=== PATIENT | female | born 1945 | race Caucasian/White ===

== ENCOUNTER 2019-03-22 23:37 | Inpatient (IN) ==
[2019-03-22] MEDS ORDERED: MORPHINE IV ONE (23:57)
[2019-03-22] MEDS ORDERED: ZOFRAN IV ONE (23:57)
[2019-03-22] MEDS ORDERED: NS 1,000 ML IV ONE (23:59)
--- NOTE | 2019-03-23 00:03 | PROVIDER DOCUMENTATION ---
HPI-Abdominal Pain/GI Problem - General Chief Complaint: Abdominal Pain Stated Complaint: ABD PAIN Time Seen by Provider: 03/22/19 23:44 Source: patient Allergies/Adverse Reactions: Patient Allergies Allergy/AdvReac Type Severity Reaction Status Date / Time No Known Allergies Allergy Verified 03/22/19 23:51 Home Medications: Home Medication List Medication Instructions Recorded Confirmed Last Taken Type Alprazolam 0.25 mg PO DAILY 03/23/19 03/23/19 Unknown History Amlodipine Besylate/Benazepril 1 ea PO DAILY 03/23/19 03/23/19 Unknown History [Amlodipine-Benazepril 5-20 mg] Nabumetone 2 tb.unit PO DAILY 03/23/19 03/23/19 Unknown History Ondansetron [Zofran] 4 mg PO Q6H PRN PRN 03/23/19 03/23/19 Unknown History SIMVAstatin [Zocor] 40 mg PO QHS 03/23/19 03/23/19 Unknown History - History of Present Illness-ABD Nature of Presenting Problems: 73 YO F pmh for HTN presents with acute onset abdominal pain and vomiting that began at 1800 today. Pt states she vomited all of her dinner. had about 3-4 episodes of diarrhea, associated with blood. She had dizziness, so called EMS. En route, pt became hypotensive with BPs down to 80s systolic, she was given 500mL fluids. Pt AAOx3 with abdominal pain and nausea on exam. Abdominal Pain Onset Location: reports: LLQ Pain Radiation: reports: no radiation Quality of Pain: reports: aching, sharp Severity in ED: reports: moderate Onset/Duration: reports: 4-6 hours ago Timing: reports: still present Activities at Onset: reports: other (eating dinner) Modifying Factors: improves with: nothing Associated Symptoms: reports: diarrhea, dizziness, malaise, nausea, vomiting. denies: constipation, fatigue, fever/chills, headaches Last BM: this evening Dark Stools Present?: reports: bright red blood Rectal Pain: reports: none Bruising or Bleeding Gums?: No Review of Systems - Adult - REVIEW OF SYSTEMS - ADULT Constitutional: denies: chills, fever Eyes: reports: no symptoms reported Ears, Nose, Mouth & Throat: reports: no symptoms reported Cardiovascular: denies: chest pain, edema Respiratory: denies: cough, shortness of breath, wheezing Gastrointestinal: reports: see HPI, abdominal pain, diarrhea, nausea, rectal bl eeding, vomiting Genitourinary: reports: no symptoms reported Musculoskeletal: reports: no symptoms reported Integumentary: reports: no symptoms reported Neurological: reports: dizziness/vertigo Past History - Adult - PAST MEDICAL HISTORY-ADULT Review of Records: reports: Nursing Assessment Review, Medications Reviewed Major Childhood Illnesses: reports: denies history Cardiovascular: reports: HTN, hyperlipidemia Respiratory: reports: denies history Gastrointestinal: reports: denies history Genitourinary: reports: denies history Musculoskeletal: reports: chronic pain (chronic arthritis) - PRIOR SURGERIES/PROCEDURES Surgical/Procedure History: reports: hysterectomy, other (cysts removed from ovaries). denies: recent surgery - FAMILY HISTORY Family History: reviewed, not pertinent - SOCIAL HISTORY Smoking: cigarettes Substance Use: denies Living Situation: family Physical Exam-General - PHYSICAL EXAM-ADULT Initial Vital Signs Reviewed: Yes - CONSTITUTIONAL General Appearance: alert, no apparent distress, slow to respond - EYES Eyes: PERRL/EOMI - HEAD, EARS, NOSE, MOUTH & THROAT HENMT: normocephalic/atraumatic, moist mucous membranes - NECK Neck: supple - RESPIRATORY Respiratory: lungs clear, normal breath sounds - CARDIOVASCULAR Cardiovascular: regular rate, rhythm, no edema - GASTROINTESTINAL (ABDOMEN) Abdominal Exam: tenderness (LLQ) - MUSCULOSKELETAL Back Exam: no CVA tenderness Extremity: normal range of motion - SKIN Integumentary: normal color, normal turgor, warm/dry - NEUROLOGIC Neurologic: grossly normal - PSYCHIATRIC Psych/Mental Status: normal mood/affect, oriented x 3 Progress - PLAN OF CARE/RESULTS Progress/Plan/Lab Results: Vital Signs - 8 hr 03/22/19 23:43 Temperature 97.4 F L Pulse Rate 75 Respiratory Rate 16 Blood Pressure 98/57 O2 Sat by Pulse Oximetry 95 Orders Category Date Time Status CT ABDOMEN/PELVIS W/O CONTRAST [CT] Stat Exams 03/22/19 23:56 Ordered CBC WITH ELECTRONIC DIFF [HEME] Stat Lab 03/22/19 23:55 Uncollected COMPREHENSIVE METABOLIC PANEL [CHEM] Stat Lab 03/22/19 23:56 Uncollected PROTIME WITH INR [COAG] Stat Lab 03/22/19 23:56 Ordered PTT [COAG] Stat Lab 03/22/19 23:56 Ordered TSH Stat Lab 03/22/19 23:56 Uncollected TYPE & SCREEN [BBK] Stat Lab 03/22/19 23:56 Uncollected URINALYSIS W/POSS RFLX CULT [URINALYSIS] Stat Lab 03/22/19 23:56 Uncollected Morphine Med 03/22/19 23:57 Once 4 mg IV NOW ONE Ondansetron [Zofran] Med 03/22/19 23:57 Once 8 mg IV NOW ONE Result Diagrams: 03/22/19 23:57 03/22/19 23:57 - REASSESSMENT Reassessment #1 Time Reassessed: 00:58 Status: unchanged (pt with no improvement in pain after morphine. will try dilaudid. ct scan and labs pending.) Reassessment #2 Time Reassessed: 01:17 Status: unchanged (pt with vomiting. CT showing diverticulitis. BPs still low normal.) - CT/MRI 1 CT Study: Abdomen, Pelvis Impression: See EMR Report (mild diverticulitis with trace inflammatory changes adjacent to diverticuli within the left lower quadrant. dilation of the gall bladder.) - CONSULTS/PCP/HOSPITALIST Notification #1 *Consult/PCP/Hospitalist*: Dr. Ocampo Time Discussed: 02:03 Consult Disposition: Will see in ED Departure - Departure Date of Disposition Decision: 03/23/19 Time of Disposition Decision: 02:03 DIAGNOSIS: Diverticulitis, Elevated creatine kinase Disposition: ADMITTED INPATIENT 09 Certified Medical Emergency: Emergent Condition: Stable - Critical Care Note This patient required my direct & personal management of CC.: No Attestation - Physician/ BARRETT Attestation The physician spent face to face time with patient:: Yes Advanced Practice Provider documentation review:: Supervising physician onsite and consulted in the evaluation and care of this patient. The physician did have a face to face encounter with the patient.
[2019-03-23] MEDS ORDERED: NS 1,000 ML IV ONE (00:59)
[2019-03-23] MEDS ORDERED: DILAUDID IV ONE (00:59)
[2019-03-23 01:01] LABS: BASO# 0.02 X1000 (0.0-0.2); BASO% 0.2 % (0.0-0.8); EOS# 0.04 X1000 (0.0-0.7); EOS% 0.3 % (0.0-10.0); IMM GRAN# 0.03 X1000 (0.0-0.04); IMM GRAN% 0.2 % (0.0-0.5); LYMPH# 0.52 X1000 (1.2-3.4); LYMPH% 4.3 % (20.5-51.1); MCH 30.1 PG (27-31); MCHC 32.7 g/dL (33-37); MCV 92.3 FL (81-99); MONO# 1.25 X1000 (0.11-0.59); MONO% 10.2 % (1.7-9.3); MPV 11.5 FL (7.4-10.4); NEUT# 10.35 X1000 (1.4-6.5); NEUT% 84.8 % (42.2-75.2); PLT 310 X1000 (130-400); RBC 5.31 XMIL (4.2-5.4); RDW 13.3 % (11.5-14.5); WBC 12.21 X1000 (4.8-10.8)
[2019-03-23 01:06] LABS: INR 0.97; PTT 29.3 Seconds (22.3-41.8)
[2019-03-23] MEDS ORDERED: FLAGYL 500 MG/NS 500 MG/100 ML IVPB IV ONE (01:14)
[2019-03-23] MEDS ORDERED: PHENERGAN IV ONE (01:16)
[2019-03-23] MEDS ORDERED: SODIUM CHLORIDE 0.9% INJ ONE (01:16)
[2019-03-23 01:25] LABS: ALB/GLOB RATIO 2.3; ALBUMIN 4.4 g/dL (3.5-5.0); CALCIUM 9.6 mg/dL (8.8-10.2); CREATININE 1.7 mg/dL (0.5-0.9); POTASSIUM 4.4 mmol/L (3.5-5.1); TOTAL BILIRUBIN 0.53 mg/dL (0.20-1.00); TOTAL PROTEIN 6.3 g/dL (6.3-8.3)
[2019-03-23] MEDS ORDERED: SODIUM CHLORIDE 0.9% INJ PRN (02:29)
[2019-03-23] MEDS ORDERED: PHENERGAN IV PRN (02:29)
[2019-03-23] MEDS ORDERED: DILAUDID IV PRN (02:34)
[2019-03-23] MEDS: NS 1,000 ML IV SCH ×2 (02:52→17:58)
[2019-03-23] MEDS ORDERED: CIPRO 400 MG/D5W 400 MG/200 ML IVPB IV ONE (03:00)
[2019-03-23] MEDS ORDERED: SODIUM CHLORIDE 0.9% INJ SCH (03:00)
--- NOTE | 2019-03-23 04:07 | HISTORY AND PHYSICAL ---
PRIMARY CARE PHYSICIAN: Jeremy Garza MD. CHIEF COMPLAINT: Abdominal pain. HISTORY OF PRESENT ILLNESS: Ms. Palomino is a 73-year-old female who presented to the ER today with complaints of abdominal pain, diarrhea and vomiting. The patient states that after dinner tonight she started having severe abdominal pain. She started having severe diarrhea and vomiting. She started having so much diarrhea that it became bloody. She stated that she has had a history of diverticulitis in the past, and this is what she had in the past when she had diverticulitis. The patient states that she also has had a history of gastric ulcers, and she was placed on medication for that in the past. She believes that her gastric doctor is Dr. Johnson. CT scan was done in the ER, it does show the patient to have mild diverticulitis with trace inflammatory changes adjacent to the diverticula, with left lower quadrant dilation and dilation of the gallbladder. The patient is also noted to have an elevated white blood cell count of 12.21, and elevated creatinine of 1.7. The patient is lying in the ER stretcher. She is complaining of some mild abdominal discomfort at this time; however, she has had a couple doses of pain medication and some nausea medicine while in the ER. The patient stated that she also had some dizziness with this pain. She has not complained of any of the symptoms at this time. PAST MEDICAL HISTORY: Includes diverticulitis, hypertension, hyperlipidemia, renal cyst, granulomas, arthritis which she has atropine noted from a hip replacement, and is on home NSAIDs. PAST SURGICAL HISTORY: Right hip replacement, hysterectomy. FAMILY HISTORY: Father from Alzheimer's. She has a couple of brothers that have severe arthritis. She had a brother from leukemia. SOCIAL HISTORY: She lives in [place] with her of 27 years. She is retired. She states she smokes half a pack of cigarettes a day and has for greater than 60 years. She occasionally drinks alcohol. She denies any illicit drug abuse. ALLERGIES: No known drug allergies. MEDICATIONS: 1. Alprazolam 0.25 mg p.o. daily. 2. Amlodipine/benazepril 5/20 mg 1 p.o. daily. 3. Nabumetone 750 mg p.o. daily. 4. Zofran 4 mg p.o. q.6 hours p.r.n. 5. Simvastatin 40 mg p.o. q.h.s. LABORATORY AND DIAGNOSTICS: White blood cell count is 12.21, red blood cell count is 5.31, hemoglobin is 16.0, hematocrit is 49.0, platelet count is 310,000. PT 13.0, INR 0.97, PTT is 29.3. Sodium 142, potassium is 4.4, chloride 103, carbon dioxide 19, anion gap 20, BUN is 13, creatinine is 1.7, estimated GFR is 29, glucose 134, calcium 9.6, total bilirubin is 0.53, AST is 19, ALT is 16, alkaline phosphatase is 85. TSH is 10.66. IMAGING: CT of the abdomen and pelvis shows mild diverticulitis with trace inflammatory changes adjacent to the diverticula with left lower quadrant and dilation of the gallbladder. REVIEW OF SYSTEMS: A 12 point review of systems has been obtained and all are negative except what is stated above in the HPI. PHYSICAL EXAMINATION: VITAL SIGNS: Temperature 97.4 degrees, pulse rate 76, respiratory rate 15, blood pressure 104/61, O2 saturation is 96% on room air. Height is 5 feet 10 inches, weight is 172 pounds. GENERAL: This is a 73-year-old female. She is lying in ER stretcher. She is in no acute distress. She is well nourished and well developed. HEENT: Atraumatic, normocephalic. Pupils are equal, round, reactive to light. Sclerae are anicteric. Mucous membranes are moist. NECK: Supple. No lymphadenopathy. Trachea is midline. No JVD. No thyromegaly. No bruits. CARDIOVASCULAR: Regular rate and rhythm. No murmurs, gallops or rubs appreciated. RESPIRATORY: Lung sounds are clear with equal chest excursion. Respirations are nonlabored. No accessory muscle usage. GASTROINTESTINAL: Abdomen is tender, it is nondistended. Bowel sounds are present x4. NEUROLOGIC: Cranial nerves II-XII are intact. The patient is awake, alert and oriented. MUSCULOSKELETAL: Full distal strength noted. No abnormalities. No deformities. EXTREMITIES: No clubbing, no cyanosis, no edema. DP and PT pulses are present and palpable. SKIN: Warm, dry and intact. No rashes. No bruises. No diaphoresis. ASSESSMENT AND PLAN: 1. Diverticulitis. We are going to admit this patient to the medical floor. We are going to place her on a air sampling and monitoring. We are going to start her on IV fluid hydration of normal saline at 100 mL an hour. We are going to start her on Flagyl and Cipro. She was given a dose in the ER already, I am just going to continue these medications on the floor. She was given Dilaudid in the ER for pain control, I am going to continue this dose. We are going to give her 0.5 q.3 hours p.r.n. as needed for pain. I am also going to give her Zofran and Phenergan for her nausea. I am going to keep her NPO at this time as she has had several bouts of nausea, vomiting and diarrhea. Once this gets better we will start her on a clear liquid diet. Her H H is stable at this time. If she has any more bleeding or any more problems we will consult GI. Right now everything seems to be stable at this time. 2. Chronic kidney disease. The patient does take home NSAIDs for her arthritis. I am not going to restart her home medications at this time. She is NPO for her nausea and vomiting. I do not have any numbers to see what her creatinine or her GFR is. I am going to give her some IV fluid hydration. She says she does not have any trouble voiding. Her creatinine is only 1.7. Her GFR is 29. I am going to recheck her labs in the morning. Hopefully this number will improve with some IV fluid hydration. 3. Possible hypothyroidism. We did check a TSH on this patient, it is very elevated. The patient does not take anything for this at home. We may want to recheck this number prior to discharge and after some fluid hydration. This number is elevated at 10.66. 4. Hypertension. We are holding all her p.o. medications at this time. Her blood pressure is within normal range at this time. We will restart her home medications once she is able to tolerate p.o. 5. Hyperlipidemia. We will restart her home medications once she is able to tolerate p.o. 6. Deep venous thrombosis prophylaxis. I have placed SCD's on this patient. 7. Gastrointestinal prophylaxis. I will start her on IV Protonix. The plan is to admit this patient to the medical floor. I have started her on IV fluid hydration. I have started her on IV antibiotics for her diverticulitis. I am going her NPO at this time given her antiemetics for her nausea and vomiting. I have given her pain medication for her abdominal pain. All other further treatment pending hospital course and laboratory data. Dictated by JOHN Alexis for Sasha Ocampo MD cc: MD Jeremy Jalloh MD My exam was performed at bedside with [facility]. Plan of care discussed with [facility] and patient and questions answered to her satisfaction. DENNIS
[2019-03-23] MEDS: PROTONIX IV SCH (04:10)
[2019-03-23] MEDS: ZOFRAN IV PRN ×2 (04:19→10:18)
--- NOTE | 2019-03-23 08:28 | Diag Imaging Result Doc PS360 ---
EXAM: CT ABDOMEN/PELVIS W/O CONTRAST INDICATION: LLQ abdominal pain, acute onset TECHNIQUE: This exam was performed using automated exposure control, adjustment of mA or kV according to patient size, and/or use of iterative reconstruction technique. COMPARISON: None. FINDINGS: There is mild subsegmental atelectasis at the lung bases. The gallbladder is distended. No pericholecystic inflammatory changes are identified and there is no evidence of significant biliary dilatation. There are a couple of small hepatic cysts. The liver is unremarkable, otherwise. The spleen and pancreas are unremarkable. There is minimal low dense thickening of the left adrenal gland that statistically most likely represents an underlying adenoma. The adrenal glands are unremarkable, otherwise. There a few cystic appearing foci involving both kidneys, possibly containing proteinaceous debris. There is a tiny subcentimeter nodule at the posterior aspect of the left kidney that is mildly hyperdense. Although technically nonspecific on an unenhanced study, this probably represents a cyst containing blood products. There are no renal or ureteral stones and there is no hydronephrosis. The urinary bladder is nondistended and is partially obscured by the hardening artifact related to right hip arthroplasty. There has been a prior hysterectomy. There is fairly extensive sigmoid colonic diverticulosis. There is trace increased opacity around the sigmoid colon. I suppose this could represent extremely mild diverticulitis. However, it is questionable. Note that it could be less apparent on an unenhanced study such as this. No definite focal bowel wall thickening or bowel obstruction is identified. The remainder of the GI tract is essentially unremarkable. No free abdominal gas or free fluid is identified. There is extensive aortoiliac atherosclerotic calcification. There are degenerative changes but there is no evidence of acute osseous abnormality. IMPRESSION: 1.Diverticulosis with trace increased opacity around the sigmoid colon. Although questionable, very mild diverticulitis is possible. 2.Distended gallbladder but no definite biliary dilatation or pericholecystic inflammatory change. 3.Other incidental/nonacute findings detailed above. Electronically signed by Greg Munoz 03/23/2019 8:26 AM
--- NOTE | 2019-03-23 08:46 | Diag Imaging Result Doc PS360 ---
EXAM: US GB < RUQ (LIMITED) 03/23/2019 HISTORY: abd pain, n/v/ dilated gall bladder TECHNIQUE: Right upper quadrant ultrasound COMMENT: The pancreatic head and portions of the body which are visible are normal in appearance. The visualized portions of the aorta and inferior vena cava are unremarkable. The liver is grossly normal in appearance. There is antegrade flow in the portal vein. The gallbladder is somewhat distended measuring up to 9.1 cm in length. There are no stones and there is no evidence of para cholecystic fluid or wall thickening. The common bile duct measures 6 mm in diameter. There is a 2 cm cyst in the upper pole of the right kidney. There is no evidence of hydronephrosis. There is no sonographic Quiroga sign. IMPRESSION: Distended gallbladder of uncertain etiology. It is possible this is due to fasting, secondary to enterocolitis/gastroenteritis as suggested by the recent CT of 03/23/2019. Electronically signed by Andrei Younger 03/23/2019 8:43 AM
--- NOTE | 2019-03-23 09:10 | PROGRESS NOTE ---
DATE: 03/23/2019 SUBJECTIVE: The patient complains of having mild abdominal pain and nausea. She denies having any other complaints. OBJECTIVE: Vital Signs: Temperature 98.9 degrees, pulse 73 per minute, respiratory rate 20 per minute, blood pressure 106/31, pulse oximetry 97% on room air. General: Patient is alert and oriented x3. She does not appear to be in any acute distress. Cardiovascular System: First and second heart sounds are audible without any murmurs or gallops. Respiratory System: Bilateral lung air entry is good without any rales or rhonchi. Abdomen: Soft and nondistended. It is slightly tender on deep palpation on the left side of the abdomen. Normal bowel sounds are present. DIAGNOSTIC DATA: CBC shows WBC count of 12.21 with 84.8% neutrophils. Rest of the CBC is nondiagnostic. Comprehensive metabolic panel showed creatinine of 1.7. Rest of the comprehensive metabolic panel is nondiagnostic. TSH levels were found to be 10.66. CT scan of the abdomen and pelvis showed diverticulosis with trace increased opacity around the sigmoid colon. Questionable very mild diverticulitis is possible. Gallbladder was found to be distended, but no definite biliary dilatation or cholecystic inflammatory change was noted. Gallbladder ultrasound has been performed this morning, the results of which are pending at the time of this dictation. IMPRESSION: 1. A 73-year-old lady who has abdominal pain with possible diverticulitis and has gallbladder distention. 2. Stage 3 chronic kidney disease. 3. Hypertension. 4. Osteoarthritis. PLAN: The patient will continue to receive Cipro along with Flagyl intravenously and IV fluids. She will also continue with supportive care and we will discontinue any NSAIDs since her chronic kidney disease does appear to be secondary to NSAIDs. Her TSH is elevated and therefore I am going to add TSH along with free T3 and free T4 levels tomorrow. Further recommendations will be as per hospital course and outcome of further investigations. cc: Timur Mckenzie MD
[2019-03-23] MEDS: FLAGYL 500 MG/NS 500 MG/100 ML IVPB IV SCH ×2 (10:17→17:58)
[2019-03-23] MEDS: CIPRO 400 MG/D5W 400 MG/200 ML IVPB IV SCH (15:10)
[2019-03-24] MEDS: FLAGYL 500 MG/NS 500 MG/100 ML IVPB IV SCH (01:19)
[2019-03-24] MEDS: CIPRO 400 MG/D5W 400 MG/200 ML IVPB IV SCH ×2 (02:42→14:01)
[2019-03-24] MEDS: PROTONIX IV SCH (02:42)
[2019-03-24 07:50] LABS: BASO# 0.02 X1000 (0.0-0.2); BASO% 0.2 % (0.0-0.8); EOS# 0.16 X1000 (0.0-0.7); EOS% 1.6 % (0.0-10.0); HEMATOCRIT 37.4 % (37.0-47.0); HEMOGLOBIN 11.7 g/dL (12.0-16.0); IMM GRAN# 0.02 X1000 (0.0-0.04); IMM GRAN% 0.2 % (0.0-0.5); LYMPH# 1.39 X1000 (1.2-3.4); LYMPH% 14.2 % (20.5-51.1); MCH 29.7 PG (27-31); MCHC 31.3 g/dL (33-37); MCV 94.9 FL (81-99); MONO# 1.11 X1000 (0.11-0.59); MONO% 11.3 % (1.7-9.3); MPV 11.3 FL (7.4-10.4); NEUT# 7.08 X1000 (1.4-6.5); NEUT% 72.5 % (42.2-75.2); PLT 233 X1000 (130-400); RBC 3.94 XMIL (4.2-5.4); RDW 13.9 % (11.5-14.5); WBC 9.78 X1000 (4.8-10.8)
[2019-03-24 08:11] LABS: CALCIUM 8.2 mg/dL (8.8-10.2); CREATININE 2.9 mg/dL (0.5-0.9); MAGNESIUM 1.6 mg/dL (1.5-2.7); POTASSIUM 4.1 mmol/L (3.5-5.1)
[2019-03-24 08:24] LABS: FREE T4 1.2 ng/dL (0.93-1.70); TSH 1.64 uIUmL (0.27-4.20)
[2019-03-24] MEDS ORDERED: NORCO-7.5 PO PRN (08:28)
[2019-03-24] MEDS: NS 1,000 ML IV SCH ×2 (09:53→21:40)
[2019-03-24] MEDS: FLAGYL PO SCH ×3 (09:56→17:17)
[2019-03-24] MEDS: XANAX PO SCH (10:03)
--- NOTE | 2019-03-24 10:05 | PROGRESS NOTE ---
DATE: 03/24/2019 SUBJECTIVE: The patient notes that she feels tremendously better. Notes that her symptoms yesterday have improved. She has still been effectively NPO, she has had a few ice chips. Denies any diarrhea, or blood in her stool. PHYSICAL EXAMINATION: Vitals: Temperature 97, pulse 84, respiratory rate 18, BP 121/55. General: The patient is awake. She is pleasant. She is in no respiratory distress. She is ambulating without difficulty. HEENT: Normocephalic. Neck: Supple. Cardiovascular: Regular rate. Chest: Clear. Nonlabored. Abdomen: Soft, nondistended, nontender. Positive bowel sounds. Extremities: Moves all extremities. Neurologic: No changes. ASSESSMENT: 1. Acute on chronic renal failure. Creatinine is actually increased today from 1.7 yesterday to 2.9 today. 2. Diverticulitis, improved. 3. Hypertension. 4. Osteoarthritis. PLAN: We are going to continue the patient in the hospital, continue to follow. Further orders as needed. We are going to start adjusting her medications decrease to oral Flagyl, saline lock, give her clear liquids. If she tolerates, can advance to full liquids and hopefully home tomorrow. cc: Ta Neal MD
[2019-03-24 10:27] LABS: URINE SOURCE CLEAN CATCH
[2019-03-24 10:43] LABS: BILIRUBIN URINE NEGATIVE (NEGATIVE); BLOOD URINE NEGATIVE (NEGATIVE); COLOR YELLOW; GLUCOSE URINE NEGATIVE (NEGATIVE); KETONE URINE NEGATIVE (NEGATIVE); LEUKOCYTES URINE SMALL (NEGATIVE); NITRITE URINE NEGATIVE (NEGATIVE); PH URINE 5.5; PROTEIN URINE 30 mg/dL (NEGATIVE); SP GRAVITY URINE 1.013; TURBIDITY URINE HAZY (CLEAR); UROBILINOGEN URINE NORMAL (NORMAL)
[2019-03-24 10:55] LABS: UR EPITHELIAL CELLS >10 /HPF (<10); URINE BACTERIA NEGATIVE /HPF; URINE CASTS NONE SEEN; URINE CRYSTALS LYCINE PRESENT; URINE RBC 20-40 /HPF (<10); URINE SMALL ROUND CELLS NONE SEEN; URINE YEAST PRESENT
[2019-03-24] MEDS ORDERED: ZOCOR PO SCH (21:00)
[2019-03-25] MEDS: CIPRO 400 MG/D5W 400 MG/200 ML IVPB IV SCH (02:38)
[2019-03-25] MEDS ORDERED: PROTONIX PO SCH (07:00)
[2019-03-25 07:36] LABS: HEMATOCRIT 36.6 % (37.0-47.0); HEMOGLOBIN 11.8 g/dL (12.0-16.0); MCH 30.4 PG (27-31); MCHC 32.2 g/dL (33-37); MCV 94.3 FL (81-99); MPV 11.1 FL (7.4-10.4); RBC 3.88 XMIL (4.2-5.4); RDW 13.7 % (11.5-14.5); WBC 9.39 X1000 (4.8-10.8)
[2019-03-25 08:09] LABS: ALB/GLOB RATIO 1.4; ALBUMIN 3.3 g/dL (3.5-5.0); CALCIUM 8.7 mg/dL (8.8-10.2); CREATININE 1.5 mg/dL (0.5-0.9); POTASSIUM 3.8 mmol/L (3.5-5.1); TOTAL BILIRUBIN 0.29 mg/dL (0.20-1.00); TOTAL PROTEIN 5.6 g/dL (6.3-8.3)
[2019-03-25] MEDS: XANAX PO SCH (08:30)
[2019-03-25] MEDS: FLAGYL PO SCH ×2 (09:55→13:51)
[2019-03-25] MEDS: NS 1,000 ML IV SCH (09:55)
[2019-03-25 11:57] VITALS: BP 153/65
--- NOTE | 2019-03-27 08:42 | DISCHARGE SUMMARY ---
ADMISSION DATE: 03/23/2019 DISCHARGE DATE: 03/25/2019 PERTINENT STUDIES: 1. CT abdomen and pelvis with diverticulosis with a slight opacity around the sigmoid colon that could potentially be associated with very mild diverticulitis, distended gallbladder with no dilation, pericholecystic inflammatory changes, fluid, or other sign of cholecystitis. 2. Abdominal ultrasound again showing distended gallbladder which was favored to be related to fasting without any other sign of infection. 3. Admission white count 12.2 discharge white count 9.3 initial creatinine 1.7, trending up to 0.9 discharge creatinine 1.5. DISCHARGE DIAGNOSES: 1. Possible diverticulitis. 2. Acute kidney injury on likely chronic kidney disease 3. 3. Likely viral gastroenteritis. 4. Hypertension. 5. Hyperlipidemia. HOSPITAL COURSE: Patient presented initially with complaints of lower abdominal pain, nausea, vomiting, and bloody diarrhea. CT showed possible mild diverticulitis. She was started on antibiotics with Flagyl and ciprofloxacin. She was given pain and nausea control. On this therapy, patient improved rapidly. She did have a bump in her creatinine. Initially was 1.7, trended up to 2.9 the next day but then with continued hydration came back down to 1.5. There was no previous creatinine to compare to, but given normalized BUN and known history of some level of kidney disease, this was favored to be her baseline. Given patient's rapid onset and rapid gross resolution of her symptoms, a viral gastroenteritis was favored, but given possible diverticulitis on admission CT and mild leukocytosis of 12.2 on admission it was decided to go ahead and transition her to p.o. antibiotics to finish a course of Augmentin for possible diverticulitis. She was tolerating diet well and her pain was resolved at the time of discharge. Her LFTs were all within normal limits and cultures were no growth. DISCHARGE VITAL SIGNS: Temperature 98.7 degrees, pulse 57, respirations 18, blood pressure 133/65, O2 saturation 96% on room air. DISCHARGE DIET: [place]. DISCHARGE MEDICATIONS: 1. Simvastatin 40 mg p.o. at bedtime. 2. Xanax 0.25 mg as previously prescribed. 3. Amlodipine benazepril 5/20 daily. 4. Nabumetone 750 mg p.o. daily, but patient instructed not to restart this until her kidney function has been rechecked. 5. Zofran 4 mg p.o. every 6 hours as needed number. 6. Augmentin 875/125 1 tab p.o. b.i.d. for an additional 6 days. FOLLOWUP AND PLAN: The patient discharging home on a short course of Augmentin for possible very mild diverticulitis. The patient to follow up with PCP. Patient to return to care if nausea, vomiting, abdominal pain recur. TIME SPENT: Greater than 30 minutes spent arranging discharge and counseling patient.
== END 2019-03-25 13:55 | disposition home or self-care (01) | DRG 378 ==
LOC: ED 23:37 → 3N 03-23 03:15 → SUATTDRO 03-23 03:15
PROVIDERS: ATTEND Internal Medicine

== ENCOUNTER 2019-05-16 22:06 | Inpatient (IN) ==
[2019-05-16] MEDS ORDERED: ZOFRAN IV ONE (22:36)
[2019-05-16] MEDS ORDERED: NS 1,000 ML IV ONE (23:09)
[2019-05-16] MEDS ORDERED: BENTYL IM ONE (23:30)
[2019-05-16 23:32] LABS: BASO# 0.02 X1000 (0.0-0.2); BASO% 0.1 % (0.0-0.8); EOS# 0.17 X1000 (0.0-0.7); HEMATOCRIT 47.2 % (37.0-47.0); IMM GRAN# 0.04 X1000 (0.0-0.04); IMM GRAN% 0.2 % (0.0-0.5); LYMPH# 1.52 X1000 (1.2-3.4); LYMPH% 8.6 % (20.5-51.1); MCH 29.5 PG (27-31); MCHC 31.8 g/dL (33-37); MCV 92.7 FL (81-99); MONO% 7.4 % (1.7-9.3); MPV 11.6 FL (7.4-10.4); NEUT# 14.63 X1000 (1.4-6.5); NEUT% 82.7 % (42.2-75.2); PLT 369 X1000 (130-400); RBC 5.09 XMIL (4.2-5.4); RDW 13.1 % (11.5-14.5); WBC 17.68 X1000 (4.8-10.8)
[2019-05-16 23:49] LABS: ALBUMIN 4.4 g/dL (3.5-5.0); CALCIUM 9.7 mg/dL (8.8-10.2); CREATININE 1.5 mg/dL (0.5-0.9); POTASSIUM 4.2 mmol/L (3.5-5.1); TOTAL BILIRUBIN 0.47 mg/dL (0.20-1.00); TOTAL PROTEIN 6.6 g/dL (6.3-8.3)
[2019-05-17 00:17] LABS: URINE SOURCE CATH
[2019-05-17 00:19] LABS: BILIRUBIN URINE NEGATIVE (NEGATIVE); BLOOD URINE NEGATIVE (NEGATIVE); COLOR STRAW; GLUCOSE URINE NEGATIVE (NEGATIVE); KETONE URINE NEGATIVE (NEGATIVE); LEUKOCYTES URINE NEGATIVE (NEGATIVE); NITRITE URINE NEGATIVE (NEGATIVE); PROTEIN URINE NEGATIVE (NEGATIVE); SP GRAVITY URINE 1.003; TURBIDITY URINE CLEAR (CLEAR); UR EPITHELIAL CELLS <10 /HPF (<10); URINE BACTERIA NEGATIVE /HPF; URINE RBC <10 /HPF (<10); URINE WBC <10 /HPF (<10); UROBILINOGEN URINE NORMAL (NORMAL)
[2019-05-17] MEDS ORDERED: LEVAQUIN 500 MG/D5W 500 MG/100 ML IVPB IV ONE (00:43)
--- NOTE | 2019-05-17 00:43 | PROVIDER DOCUMENTATION ---
This chart was entered by Mariah Munoz Scribe, acting as scribe for Palomo Guillermo MD. HPI-Abdominal Pain/GI Problem - General Chief Complaint: N/V/D Stated Complaint: n/v/d Time Seen by Provider: 05/16/19 22:35 Source: patient Allergies/Adverse Reactions: Patient Allergies Allergy/AdvReac Type Severity Reaction Status Date / Time No Known Allergies Allergy Verified 03/22/19 23:51 Home Medications: Home Medication List Medication Instructions Recorded Confirmed Last Taken Type Amlodipine Besylate/Benazepril 1 ea PO DAILY 03/23/19 05/16/19 Unknown History [Amlodipine-Benazepril 5-20 mg] SIMVAstatin [Zocor] 40 mg PO QHS 03/23/19 05/16/19 Unknown History - History of Present Illness-ABD Nature of Presenting Problems: pt is a 73 yowf c/o abd pain and nvd since [id number], pt sts was seen in hospital for same due to diverticulosis flare up. pt defeated all over self in room. Abdominal Pain Onset Location: reports: periumbilical, generalized abdomen Pain Radiation: reports: no radiation Quality of Pain: reports: aching Severity in ED: reports: mild Onset/Duration: reports: this evening Timing: reports: still present Activities at Onset: reports: none Modifying Factors: improves with: nothing Associated Symptoms: reports: diarrhea, vomiting Last BM: unsure Dark Stools Present?: reports: none noticed Rectal Bleeding: reports: none Rectal Pain: reports: none Emesis Description: reports: none Review of Systems - Adult - REVIEW OF SYSTEMS - ADULT Constitutional: reports: no symptoms reported. denies: fever, fatique, night sweats Eyes: reports: no symptoms reported Ears, Nose, Mouth & Throat: reports: no symptoms reported Cardiovascular: reports: no symptoms reported Respiratory: reports: no symptoms reported Gastrointestinal: reports: see HPI, abdominal pain, diarrhea, nausea, vomiting. denies: hematemesis, constipation, rectal bleeding Genitourinary: reports: no symptoms reported Musculoskeletal: reports: no symptoms reported Integumentary: reports: no symptoms reported Neurological: reports: no symptoms reported Psychiatric: reports: no symptoms reported Endocrine: reports: no symptoms reported Hematologic/Lymphatic: reports: no symptoms reported Allergic/Immunologic: reports: no symptoms reported All Other Systems: Reviewed and Negative Past History - Adult - PAST MEDICAL HISTORY-ADULT Review of Records: reports: Nursing Assessment Review, Medications Reviewed, Social history reviewed & non-contributory. Major Childhood Illnesses: reports: denies history Cardiovascular: reports: HTN, hyperlipidemia Respiratory: reports: denies history Gastrointestinal: reports: diverticulosis Obstetrical/Gynecological: reports: denies history Genitourinary: reports: kidney disease Musculoskeletal: reports: chronic pain (chronic arthritis) Neurological: reports: denies history Endocrine/Immune: reports: denies history Other Conditions: reports: denies history - PRIOR SURGERIES/PROCEDURES Surgical/Procedure History: reports: hysterectomy, other (cysts removed from ovaries). denies: recent surgery - IMMUNIZATION STATUS Childhood Immunizations: See Nurse Assessment Flu Vaccine: See Nurse Assessment - FAMILY HISTORY Family History: reviewed, not pertinent - SOCIAL HISTORY Smoking: cigarettes, less than 1 pack/day Substance Use: none/never Physical Exam-General - PHYSICAL EXAM-ADULT Initial Vital Signs Reviewed: Yes - CONSTITUTIONAL General Appearance: alert, no apparent distress. negative: lethargic, slow to respond, obtunded - EYES Eyes: PERRL/EOMI, pink conjunctivae - HEAD, EARS, NOSE, MOUTH & THROAT HENMT: normocephalic/atraumatic, moist mucous membranes - NECK Neck: non-tender, full range of motion, supple, normal inspection - RESPIRATORY Respiratory: chest non-tender, lungs clear, normal breath sounds - CARDIOVASCULAR Cardiovascular: normal peripheral pulses, regular rate, rhythm - GASTROINTESTINAL (ABDOMEN) Abdominal Exam: normal bowel sounds, soft, no organomegaly, no pulsatile mass, tenderness (periumbicus to palp). negative: non tender, distended, guarding, rigid, rebound - MUSCULOSKELETAL Back Exam: normal inspection Extremity: normal range of motion, non-tender, normal inspection - SKIN Integumentary: normal color, normal turgor, warm/dry - NEUROLOGIC Neurologic: grossly normal, no motor/sensory deficits - PSYCHIATRIC Psych/Mental Status: normal mood/affect, normal thought content, normal thought process, oriented x 3 Progress - PLAN OF CARE/RESULTS Progress/Plan/Lab Results: Vital Signs - 8 hr 05/16/19 22:19 Temperature 97.6 F Pulse Rate 61 Respiratory Rate 13 Blood Pressure 87/50 O2 Sat by Pulse Oximetry 94 L Orders Category Date Time Status CBC WITH ELECTRONIC DIFF [HEME] Stat Lab 05/16/19 22:38 Results COMPREHENSIVE METABOLIC PANEL [CHEM] Stat Lab 05/16/19 22:38 Received URINALYSIS W/POSS RFLX CULT [URINALYSIS] Stat Lab 05/16/19 22:36 Uncollected 0.9% Sodium Chloride Inj [Ns] 1,000 ml Med 05/16/19 23:09 Active IV 999 mls/hr Ondansetron [Zofran] Med 05/16/19 22:36 Discontinued 4 mg IV NOW ONE Result Diagrams: 05/16/19 22:38 05/16/19 22:38 - CONSULTS/PCP/HOSPITALIST Notification #1 *Consult/PCP/Hospitalist*: Dr Major Time Discussed: 03:06 Consult Disposition: Will see in ED, Admit Departure - Departure Date of Disposition Decision: 05/17/19 Time of Disposition Decision: 00:41 DIAGNOSIS: GI bleed, Hypotension, Diverticulitis, Ileus, Sepsis Disposition: ADMITTED INPATIENT 09 Certified Medical Emergency: Emergent Condition: Fair Referrals and Follow-Ups: Jeremy Garza MD [Primary Care Provider] - - Critical Care Note This patient required my direct & personal management of CC.: No Attestation - Physician/ BARRETT Attestation Patient care was provided by Advanced Practice Provider:: No The physician spent face to face time with patient:: Yes Advanced Practice Provider documentation review:: Supervising physician onsite and consulted in the evaluation and care of this patient. The physician did have a face to face encounter with the patient. Sepsis: Tissue Perfusion Assmt - Physical Exam Assessment Date: 05/17/19 Time Assessment Initialized: 04:25 Vital Signs: Last Vital Signs Temp 97.6 F 05/16/19 22:19 Pulse 64 05/17/19 02:33 Resp 17 05/17/19 02:33 BP 152/92 05/17/19 02:33 Pulse Ox 100 05/17/19 02:33 Height 5 ft 10 in Weight 79.379 kg 05/17/19 04:25 See chart Lung Sounds:: lungs clear Heart Sounds:: Regular Capillary Refill Time: Less Than 2 Seconds Peripheral Pulse Evaluation:: radial (R): 4+, radial (L): 4+, dorsalis-pedis (R): 4+, dorsalis-pedis (L): 4+ Skin Exam:: flushed - Impression Impression:: Tissue Perfusion Adequate - Plan Plan:: See Orders This chart was documented by the indicated scribe, (Mariah Munoz, Vaibhavibmary) and accurately reflects the services I performed and decisions made by me, Palomo Guillermo MD, as attested by the provider's signature.
[2019-05-17] MEDS ORDERED: ZOFRAN IV ONE (01:13)
[2019-05-17] MEDS ORDERED: PHENERGAN IM ONE (01:14)
[2019-05-17] MEDS ORDERED: REGLAN IV ONE (02:21)
[2019-05-17] MEDS ORDERED: NS 1,000 ML IV ONE (04:22)
[2019-05-17] MEDS ORDERED: NS 500 ML IV ONE (04:24)
[2019-05-17] MEDS ORDERED: DILAUDID IV PRN (06:17)
--- NOTE | 2019-05-17 07:40 | Diag Imaging Result Doc PS360 ---
EXAM: CT ABDOMEN/PELVIS W/O CONTRAST INDICATION: LLq abdo pain TECHNIQUE: This exam was performed using automated exposure control, adjustment of mA or kV according to patient size, and/or use of iterative reconstruction technique. COMPARISON: 03/23/2019 FINDINGS: There are a few small stable hepatic cysts. The liver is unremarkable, otherwise. The gallbladder, spleen, and pancreas are grossly unremarkable. There is stable mild thickening of the left adrenal gland, likely an underlying adenoma or hyperplasia. There are a couple of small stable cysts associated with both kidneys. There is a subcentimeter hyperdense nodule at the posterior aspect of the right kidney that is stable and statistically most likely represents a cyst containing blood products or proteinaceous debris. There is no hydronephrosis and no renal or ureteral stones identified. The urinary bladder is grossly unremarkable. There has been a prior hysterectomy. There is moderate uncomplicated diverticulosis coli. There are fluid-filled loops of small bowel with very little distention that are nonspecific and could represent mild ileus, perhaps from mild enteritis. However, no bowel wall thickening is appreciated. There is no evidence of bowel obstruction. The remainder of the GI tract is unremarkable. No focal inflammatory changes, free abdominal gas, or free fluid is identified, otherwise. There is moderate aortoiliac atherosclerotic calcification. IMPRESSION: 1.Uncomplicated moderate diverticulosis coli. 2.Nonspecific fluid-filled loops of small bowel with minimal distention suggesting possible mild ileus. Consider mild enteritis. 3.Other incidental/nonacute findings detailed above. Electronically signed by Greg Munoz 05/17/2019 7:37 AM
[2019-05-17] MEDS: ZOFRAN IV PRN ×4 (07:44→21:40)
[2019-05-17] MEDS: PROTONIX IV SCH (07:45)
[2019-05-17] MEDS: ZOSYN 3.375 GM in NS 50 ML IV SCH ×3 (07:48→17:31)
[2019-05-17] MEDS ORDERED: LOTREL 5/20 MG PO SCH (09:00)
--- NOTE | 2019-05-17 09:33 | PROGRESS NOTE ---
DATE: 05/17/2019 SUBJECTIVE: Ms. Palomino came in. This is her third bout of diverticulitis and left lower quadrant pain. CT of the abdomen showed uncomplicated moderate diverticulosis coli, nonspecific fluid- filled loops of small bowel, minimal distention suggesting possible mild ileus, consider mild enteritis. She is very nauseated. OBJECTIVE: Her exam in the emergency room, still waiting on a bed.Vital Signs: Temperature is 97.6 degrees. She remains afebrile. Pulse 78, respirations 15, blood pressure 135/82. HEENT: Pupils are equal and round. Lungs: Clear in all lung puentes. Cardiovascular: Regular rhythm and rate without murmur or S3. Abdomen: Soft. She has left lower quadrant tenderness. She is on Levaquin. I think she got a dose of Levaquin and she is on Zosyn 3.375 g IV. LABORATORY DATA: White count is elevated at 17,680, hematocrit 47, platelet count 369,000. Sodium 139, potassium 4.2, chloride 99, BUN 11, creatinine 1.5, albumin is 4.4. Urinalysis unremarkable. PLAN: She is on normal saline 75 mL an hour, Protonix 40 mg IV q.24 hours, Zosyn 3.375 g IV q.6 hours. She got 1 dose of levofloxacin. We need to see if GI will get involved. This is, I think, the third episode. cc: Josue Hughes MD
--- NOTE | 2019-05-17 10:33 | HISTORY AND PHYSICAL ---
CHIEF COMPLAINT: Nausea as well as diarrhea for less than 1 day. HISTORY OF PRESENT ILLNESS: Ms. Rhiannon Palomino is a 73-year-old female who has a history of hypertension, hyperlipidemia, diverticulosis, and chronic pain, who presents to the hospital because of nausea, as well as vomiting with diarrhea. This was noticed around 8 p.m. on 05/16/2019. She also describes having lower abdominal pains. She denies any hematemesis or hematochezia. The patient was seen and evaluated in the ER. She did have a CT scan of the abdomen and pelvis done. The final report is still pending as of this time. The patient will be admitted for further management to the floor. PAST MEDICAL HISTORY: History of diverticulitis, hypertension, hyperlipidemia, renal disease, granuloma, arthritis. PAST SURGICAL HISTORY: Right hip replacement, as well as hysterectomy. She has also had cataract surgery. FAMILY HISTORY: Positive for cancer. ALLERGIES: No known drug allergies. SOCIAL HISTORY: She smokes cigarettes. No alcohol or drug use. MEDICATIONS: Amlodipine/benazepril 5/20 one daily, irbesartan 40 mg p.o. once a day. REVIEW OF SYSTEMS: Constitutional: No fever. BUSINESS ASST: No headaches. Eyes: No blurred vision. ENT: No sinus pain or hearing loss. Cardiovascular: No chest pain. Respiratory: Denies cough. : No dysuria. Endocrinology: No issues with thyroid or diabetes. PHYSICAL EXAMINATION: VITAL SIGNS: Temperature 97.6 degrees, pulse 61, respiratory rate is 13, blood pressure is 87/50, oxygen saturation is 94%. HEENT: Atraumatic, normocephalic. She is anicteric. Extraocular movements intact. No oral lesions. NECK: No lymphadenopathy or thyromegaly. CARDIOVASCULAR: S1, S2. RESPIRATORY: Has evidence of good air entry bilaterally. ABDOMEN: Soft, nontender. No masses felt. EXTREMITIES: No evidence of edema. CENTRAL NERVOUS SYSTEM: No obvious focal deficits noted. IMAGING AND LABORATORY DATA: WBC 17.68, hematocrit is 47.2, with a platelet count of 39,000. Sodium is 139, potassium 4.2, chloride is 99, bicarb 25, BUN is 11, creatinine 1.5, glucose 140. Lactate is 3.5. CT scan of the abdomen and pelvis, report currently pending. ASSESSMENT AND PLAN: 1. Probable diverticulitis. Will place the patient nothing by mouth. Maintain the patient on intravenous antibiotics. Follow up on official report of the CT scan of the abdomen and pelvis. 2. Probable sepsis. Maintain the patient on intravenous fluids. Continue antibiotics. Follow up on culture report. 3. Acute kidney injury. Maintain the patient on intravenous fluids. Follow up on renal function. Avoid nephrotoxic agent. 4. Hypertension. Will hold off on antihypertensive medications in light of low blood pressure. 5. Hyperlipidemia. Resume lipid-lowering agent. 6. Deep vein thrombosis prophylaxis. Sequential compression devices. 7. Gastrointestinal prophylaxis. Proton pump inhibitor. cc: Chan Major MD
[2019-05-17] MEDS: NS 1,000 ML IV SCH (13:21)
[2019-05-17] MEDS: ZOCOR PO SCH (21:37)
[2019-05-17] MEDS: XANAX PO PRN (21:38)
[2019-05-18] MEDS: NS 1,000 ML IV SCH ×3 (00:48→23:19)
[2019-05-18] MEDS: ZOSYN 3.375 GM in NS 50 ML IV SCH ×5 (00:48→18:16)
[2019-05-18] MEDS: SODIUM CHLORIDE 0.9% INJ SCH (06:09)
[2019-05-18] MEDS: PROTONIX IV SCH (06:09)
[2019-05-18] MEDS: ZOFRAN IV PRN (09:30)
[2019-05-18 09:39] LABS: BASO# 0.01 X1000 (0.0-0.2); BASO% 0.1 % (0.0-0.8); EOS# 0.05 X1000 (0.0-0.7); EOS% 0.6 % (0.0-10.0); HEMATOCRIT 34.6 % (37.0-47.0); HEMOGLOBIN 10.6 g/dL (12.0-16.0); LYMPH# 1.33 X1000 (1.2-3.4); LYMPH% 16.7 % (20.5-51.1); MCH 29.1 PG (27-31); MCHC 30.6 g/dL (33-37); MCV 95.1 FL (81-99); MONO# 0.63 X1000 (0.11-0.59); MONO% 7.9 % (1.7-9.3); MPV 11.3 FL (7.4-10.4); NEUT# 5.96 X1000 (1.4-6.5); NEUT% 74.7 % (42.2-75.2); PLT 278 X1000 (130-400); RBC 3.64 XMIL (4.2-5.4); RDW 13.6 % (11.5-14.5); WBC 7.98 X1000 (4.8-10.8)
[2019-05-18 10:03] LABS: CALCIUM 8.7 mg/dL (8.8-10.2); CREATININE 1.1 mg/dL (0.5-0.9); POTASSIUM 4.1 mmol/L (3.5-5.1)
[2019-05-18] MEDS ORDERED: TYLENOL PO PRN (10:30)
[2019-05-18] MEDS: XANAX PO PRN (21:12)
[2019-05-18] MEDS: ZOCOR PO SCH (21:12)
--- NOTE | 2019-05-18 21:14 | PROGRESS NOTE ---
DATE: 05/18/2019 SUBJECTIVE: This patient feels much better. Her abdomen is not painful today, and she started to tolerate a little bit p.o. She is not having nausea and vomiting. She had an episode of diarrhea in the morning. OBJECTIVE: Vital Signs: Temperature 97.9 degrees, pulse 62, respiratory rate 19, blood pressure 152/57, oxygen saturation 96% on room air. HEENT: Head is normocephalic, no trauma. PERRLA. Neck: Supple. No JVD. No masses. Central trachea. Chest: Clear to auscultation. No wheezing. No rales. Abdomen: Soft, slightly distended, but nontender to palpation. Positive bowel sounds. Extremities: No edema, no clubbing, no cyanosis. Neurological: The patient is alert and oriented x3. No focal deficits. LABORATORY DATA: WBC 7.9, hemoglobin 10.6, hematocrit 34.6, platelets 278,000. Sodium 144, potassium 4.1, chloride 112, bicarbonate 21, BUN 10, creatinine 1.1, glucose 91, calcium 8.7. ASSESSMENT AND PLAN: 1. Mild enteritis and/or possible ileus. She had an episode of diarrhea today, probably this is an enteritis, but she also has an uncomplicated moderate diverticulosis coli. We will continue with antibiotics. She came in with a leukocyte count of 17.6 and today is normal. Gastroenterology Department has been consulted. 2. Acute kidney injury on chronic kidney disease. It looks like this is her baseline. We will monitor. Her creatinine is much better today. 3. Hyperlipidemia. Continue with statins. 4. Deep vein thrombosis prophylaxis with sequential compression devices. 5. Gastrointestinal prophylaxis with proton pump inhibitors. 6. Hypertension. She came in with low blood pressure. Her blood pressure medication has been on hold, and I will continue to monitor. Probably tomorrow we will restart these medications. cc: Roldan Mcmahon MD
[2019-05-19] MEDS: ZOSYN 3.375 GM in NS 50 ML IV SCH ×3 (00:55→11:02)
[2019-05-19] MEDS: NS 1,000 ML IV SCH (04:22)
[2019-05-19] MEDS: SODIUM CHLORIDE 0.9% INJ SCH (06:28)
[2019-05-19] MEDS: PROTONIX IV SCH (06:28)
--- NOTE | 2019-05-19 06:55 | GASTROENTEROLOGY CONSULTATION ---
DATE: 05/18/2019 HISTORY OF PRESENT ILLNESS: This is a 73-year-old female, who reports 3 different episodes of similar symptoms over the last 3 years. This is the 2nd time that she has been in the hospital with similar symptoms. She reports having sudden onset of nausea, vomiting, diarrhea to the point that she gets dehydrated. She does think that she has blood in the stool when these episodes happen. She has been treated for diverticulitis in the past. She had a CT scan on admission that showed uncomplicated moderate diverticulosis with no evidence of diverticulitis. She had nonspecific fluid-filled loops of small bowel with minimal distention suggesting possible mild ileus versus mild enteritis. Patient does report history of reflux which flares up when she has these symptoms. She states she has had a colonoscopy in the past. She actually thought Dr. Johnson had done the colonoscopy, but when looking back she had a colonoscopy by Dr. Rose in 2017. Records in the hospital showed pathology showing hyperplastic polyps, tubular adenomatous polyps and diverticulosis. PAST MEDICAL HISTORY: Hypertension, hyperlipidemia, renal disease, granuloma, arthritis, history of reported diverticulitis. PAST SURGICAL HISTORY: Right hip replacement, hysterectomy, cataract surgery. ALLERGIES: No known drug allergies. HOME MEDICATIONS: 1. Xanax 0.5 mg daily as needed. 2. Amlodipine/benazepril 5/20 mg daily. 3. Zofran 4 mg every 4 to 6 hours as needed. 4. Zocor 40 mg every night. SOCIAL HISTORY: She is . Positive for tobacco use. No alcohol or drug use. REVIEW OF SYSTEMS: Per history of present illness. PHYSICAL EXAMINATION: Vital Signs: Temperature 98.3 degrees, pulse 63, respirations 16, blood pressure 125/57. Generally: Patient is awake and alert, in no acute distress. HEENT: Normocephalic, atraumatic. Pupils equal, round, reactive to light. Sclerae are nonicteric. Cardiovascular: Regular rate and rhythm. Respiratory: Lung sounds essentially clear. Abdomen: Currently soft, nontender. Positive bowel sounds at the time of my evaluation. Extremities: No lower extremity edema noted. Neurological: Cranial nerves 2-12 grossly intact. Patient is awake and alert, oriented to person, place, and time. DIAGNOSTIC RESULTS: WBC on admission was 17.68, today 7.98. Hemoglobin has dropped slightly from admission of 15.0 and 47.2 to 10.6 and 34.6, MCV 95.1. Chemistry: Sodium 144, potassium 4.1, chloride 112, CO2 21. BUN 10, creatinine 1.1, glucose 91, and total bilirubin 0.47. AST 13, ALT 10, alkaline phosphatase 80. Urinalysis was negative. CT scan of the abdomen and pelvis showed no evidence of diverticulitis, but moderate diverticulosis. Showed nonspecific fluid-filled loops of small bowel. Possible mild ileus versus mild enteritis. ASSESSMENT: 1. Recent diarrhea, nausea and vomiting has improved. 2. Reported history of diverticulitis, but CT scan showing ileus versus enteritis. Patient's white blood cell count was elevated; she does have many white blood cells in the stool. Clostridium difficile was negative. Pending culture and ova and parasite, patient did have a Hemoccult-positive stool. 3. History of hypertension. 4. Hyperlipidemia. 5. Gastroesophageal reflux disease. 6. History of colon polyps with last colonoscopy in 2017. 7. Possible enteritis versus ileus. The patient symptoms have improved. We continued antibiotics. Waiting on final stool study results. Will continue to follow for active bleeding, follow her hemoglobin and hematocrit. Once this current episode has resolved, she may need repeat colonoscopy as an outpatient. She can follow up with us then. PLAN: I have discussed the plan with the patient. She is adamant about not wanting any invasive tests or procedures done in the hospital. We will continue to follow and further plans will be made according to her progress. I have discussed this case with Dr. Johnson. Thank you for this consultation. Dictated by JOHN Kovacs for Nelson Johnson MD cc: JOHN Torrez MD
[2019-05-19 08:24] VITALS: BP 152/67
[2019-05-19 08:27] LABS: BASO# 0.01 X1000 (0.0-0.2); BASO% 0.2 % (0.0-0.8); EOS# 0.14 X1000 (0.0-0.7); EOS% 2.1 % (0.0-10.0); HEMATOCRIT 34.7 % (37.0-47.0); HEMOGLOBIN 10.9 g/dL (12.0-16.0); LYMPH# 1.37 X1000 (1.2-3.4); MCH 29.3 PG (27-31); MCHC 31.4 g/dL (33-37); MCV 93.3 FL (81-99); MONO# 0.51 X1000 (0.11-0.59); MONO% 7.8 % (1.7-9.3); NEUT% 68.9 % (42.2-75.2); PLT 261 X1000 (130-400); RBC 3.72 XMIL (4.2-5.4); RDW 12.9 % (11.5-14.5); WBC 6.53 X1000 (4.8-10.8)
[2019-05-19 09:09] LABS: AGAP 14; BUN 3 mg/dL (8-22); CALCIUM 8.7 mg/dL (8.8-10.2); CHLORIDE 104 mmol/L (98-107); COSMO 273; CREATININE 0.8 mg/dL (0.5-0.9); ESTIMATED GFR > 60; GLUCOSE 84 mg/dL (70-104); POTASSIUM 3.6 mmol/L (3.5-5.1); SODIUM 139 mmol/L (136-145); TCO2 21 mmol/L (25-35)
--- NOTE | 2019-05-20 07:22 | GASTROENTEROLOGY PROGRESS NOTE ---
DATE: 05/19/2019 SUBJECTIVE: The patient has tolerated her diet. She did have a loose stool yesterday. Abdominal pain has improved. IMAGING STUDIES: Abdominal and pelvis CT scan showed uncomplicated moderate diverticulosis, nonspecific fluid-filled loops of small bowel and minimal distention suggesting possible mild ileus versus enteritis. The patient has received antibiotics since admission. OBJECTIVE: Vital Signs: Temperature 98.3 degrees, pulse 55, respirations 16, blood pressure 152/67. General: The patient was awake and alert, in no acute distress. Laboratory: Hematology: WBCs 6.53, hemoglobin 10.9, hematocrit 34.7, MCV 93.3. Chemistry: Sodium 139, potassium 3.6, chloride 104, CO2 of 21, BUN 3, creatinine 0.8, glucose 84. ASSESSMENT AND PLAN: 1. Recent diarrhea, nausea, and vomiting have improved. 2. CT scan showing ileus versus enteritis. Recommend to continue current laxative. Stool studies were negative, Clostridium difficile was negative. Although she did have many WBCs, stool culture showed no pathogen. No ova or parasites seen. 3. History of colon polyps and diverticulosis. Per hospital note, her last colonoscopy was in [address] Rose. 4. Possible gastroenteritis. Would recommend bland diet for the next several days. Continue current medications. Recommend she follow up with us in the office after discharge. I have given her contact information to call make and make an appointment. I believe she may be discharged today. I have discussed this case with Dr. Johnson. Dictated by JOHN Kovacs for Nelson Johnson MD cc: JOHN Torrez MD
--- NOTE | 2019-05-20 10:18 | DISCHARGE SUMMARY ---
ADMISSION DATE: 05/17/2019 DISCHARGE DATE: 05/19/2019 DISCHARGE DIAGNOSES: 1. Gastroenteritis, resolved. 2. Acute kidney injury on chronic kidney disease, resolved. 3. Hyperlipidemia. 4. History of diverticulosis. 5. Hypertension. PROCEDURES PERFORMED: Abdomen and pelvis CT scan dated 05/17/2019. Impression: Uncomplicated moderate diverticulosis coli, nonspecific fluid-filled loops of small bowel with minimal distention suggesting possible mild ileus. Consider mild enteritis. CONSULTS: Gastroenterology department, Dr. Johnson. HOSPITAL COURSE: This is a 73-year-old female with a past medical history of hypertension, hyperlipidemia, diverticulosis, and chronic pain, who presented to the hospital and was admitted on 05/17/2019 due to diarrhea, abdominal pain, nausea, and vomiting. Apparently, she started having these symptoms around 8 p.m. on 05/16/2019. She described having lower abdominal pain. No hematemesis or hematochezia. The patient was evaluated in the ER and she did have a CT scan that showed uncomplicated moderate diverticulosis coli, nonspecific fluid-filled loops of small bowel with minimal distention suggesting possible mild ileus. Consider mild enteritis. She was admitted to the medical floor. We started this patient on fluid resuscitation and actually her kidney function got much better to the point that today, it is normal. Vital signs also are stable. She is still having some bowel movements but, as per the patient, she is able to control that. Initially, she was not able to control it. She has been evaluated by the gastroenterology department who suggested to discharge this patient without antibiotics since this is an enteritis and is basically self-limited. They would like to follow up with her as an outpatient though. I evaluated this patient at the bedside yesterday and today. All her questions were answered. At the moment of discharge, this patient was in stable medical condition, tolerating p.o., and ambulating. She is not complaining of abdominal pain. PHYSICAL EXAMINATION: Vital Signs: Temperature 98.3 degrees, pulse 55, respiratory rate 16, blood pressure 152/67, oxygen saturation 95% on room air. HEENT: Head normocephalic. No trauma. PERRLA. Neck: Supple. No JVD. No masses. Central trachea. Chest: Clear to auscultation. No wheezing. No rales. Abdomen: Soft. Slightly distended but nontender or having any discomfort to palpation. Positive bowel sounds. Extremities: No edema, no clubbing, no cyanosis. Neurological Examination: The patient is alert. She is oriented x3. No focal deficits. LABORATORY DATA: WBCs 6.5, hemoglobin 10.9, hematocrit 34.7, platelets 261,000. Sodium 139, potassium 3.6, chloride 104, bicarbonate 21, BUN 3, creatinine 0.8, glucose 84, calcium 8.7. DISCHARGE MEDICATIONS: The patient will continue with her home medications including alprazolam 0.5 mg p.o. daily as needed, amlodipine/benazepril 5/20 mg p.o. daily, Zofran 4 mg p.o. q.4-6 hours as needed for nausea and vomiting, and simvastatin 40 mg p.o. at bedtime. FOLLOWUP: Follow up with her primary care doctor in 1 to 2 weeks and also she will need to call for an appointment with Dr. Johnson for followup as well. cc: Roldan Mcmahon MD
== END 2019-05-19 12:18 | disposition home or self-care (01) | DRG 392 ==
LOC: SUPCPDRO → ED 22:06 → EDIPHOLD 05-17 08:18 → SUATTDRO 05-17 08:18 → 3N 05-17 11:32
PROVIDERS: ATTEND Internal Medicine

== ENCOUNTER 2019-08-07 22:43 | Inpatient (IN) ==
[2019-08-07 23:18] LABS: BASO# 0.03 X1000 (0.0-0.2); BASO% 0.2 % (0.0-0.8); EOS# 0.13 X1000 (0.0-0.7); HEMATOCRIT 48.3 % (37.0-47.0); HEMOGLOBIN 15.4 g/dL (12.0-16.0); IMM GRAN# 0.03 X1000 (0.0-0.04); IMM GRAN% 0.2 % (0.0-0.5); LYMPH# 0.98 X1000 (1.2-3.4); LYMPH% 7.4 % (20.5-51.1); MCH 28.6 PG (27-31); MCHC 31.9 g/dL (33-37); MCV 89.8 FL (81-99); MONO# 0.72 X1000 (0.11-0.59); MONO% 5.4 % (1.7-9.3); MPV 12.2 FL (7.4-10.4); NEUT# 11.33 X1000 (1.4-6.5); NEUT% 85.8 % (42.2-75.2); PLT 343 X1000 (130-400); RBC 5.38 XMIL (4.2-5.4); RDW 13.4 % (11.5-14.5); WBC 13.22 X1000 (4.8-10.8)
[2019-08-07 23:39] LABS: ALB/GLOB RATIO 1.3; ALBUMIN 3.7 g/dL (3.5-5.0); CALCIUM 9.1 mg/dL (8.8-10.2); CREATININE 1.1 mg/dL (0.5-0.9); POTASSIUM 4.4 mmol/L (3.5-5.1); TOTAL BILIRUBIN 0.27 mg/dL (0.20-1.00); TOTAL PROTEIN 6.6 g/dL (6.3-8.3)
[2019-08-07] MEDS ORDERED: BENTYL IM ONE (23:40)
[2019-08-07] MEDS ORDERED: NS 1,000 ML IV ONE ×2 (23:40→23:57)
[2019-08-07] MEDS ORDERED: MORPHINE IV ONE (23:42)
[2019-08-07] MEDS ORDERED: ROCEPHIN 1 GM in NS 50 ML IV ONE (23:58)
[2019-08-08] MEDS ORDERED: REGLAN IV ONE ×2 (00:06→04:05)
[2019-08-08] MEDS ORDERED: REGLAN ONE (00:11)
[2019-08-08] MEDS ORDERED: DECADRON IV ONE (01:11)
[2019-08-08] MEDS ORDERED: INAPSINE IV ONE (01:25)
[2019-08-08 02:50] LABS: URINE SOURCE CATH
[2019-08-08 03:00] LABS: BILIRUBIN URINE NEGATIVE (NEGATIVE); BLOOD URINE NEGATIVE (NEGATIVE); CLARITY CLEAR (CLEAR); COLOR YELLOW; GLUCOSE URINE NEGATIVE (NEGATIVE); KETONE URINE NEGATIVE (NEGATIVE); LEUKOCYTES URINE TRACE (NEGATIVE); NITRITE URINE POSITIVE (NEGATIVE); PH URINE 5.5; PROTEIN URINE TRACE mg/dL (NEGATIVE); SP GRAVITY URINE <= 1.005; UROBILINOGEN URINE 0.2 EU/dL (0.2-1.0)
[2019-08-08 03:10] LABS: URINE BACTERIA 3+ /HFP; URINE CAST NONE SEEN /LPF; URINE CRYSTAL NONE SEEN /HPF; URINE EPITHELIAL CELLS <10 /HPF (<10); URINE RBC <10 /HPF (<10); URINE WBC <10 /HPF (<10); URINE YEAST NONE SEEN /HPF
[2019-08-08] MEDS ORDERED: FLAGYL 500 MG/NS 500 MG/100 ML IVPB IV ONE (03:37)
--- NOTE | 2019-08-08 04:10 | PROVIDER DOCUMENTATION ---
This chart was entered by Humaira Yu Scribe, acting as scribe for Horacio Berry MD. HPI-Abdominal Pain/GI Problem - General Chief Complaint: N/V/D Stated Complaint: VOMITING/DIARRHEA Time Seen by Provider: 08/07/19 23:02 Source: patient Allergies/Adverse Reactions: Patient Allergies Allergy/AdvReac Type Severity Reaction Status Date / Time No Known Allergies Allergy Verified 05/17/19 06:25 Home Medications: Home Medication List Medication Instructions Recorded Confirmed Last Taken Type Amlodipine Besylate/Benazepril 1 ea PO DAILY 03/23/19 05/17/19 05/16/19 07:00 History [Amlodipine-Benazepril 5-20 mg] SIMVAstatin [Zocor] 40 mg PO QHS 03/23/19 05/17/19 05/16/19 21:00 History Alprazolam 0.5 mg PO DAILY PRN PRN 05/17/19 05/17/19 05/15/19 20:00 History Ondansetron [Zofran] 4 mg PO Q4-6H PRN PRN 05/17/19 05/17/19 05/16/19 14:00 History Acetaminophen [Tylenol] 650 mg PO Q6H PRN PRN tab 05/19/19 Unknown Rx - History of Present Illness-ABD Nature of Presenting Problems: pt is a 73 yr old female presenting via EMS with sudden onset abdominal pain, nausea, vomiting and diarrhea. pt admits hx of diverticulosis, reports when she has a flare she has no warning, it always comes on suddenly. pt denies fever/chills, admits weakness/fatigue, pt continues to vomit despite Zofran OCT and IV given by EMS enroute to ER Abdominal Pain Onset Location: reports: generalized abdomen Pain Radiation: reports: no radiation Quality of Pain: reports: aching, cramping Severity in ED: reports: moderate Onset/Duration: reports: abrupt, this evening Timing: reports: still present Activities at Onset: reports: light activity Exposure to sick contacts?: No Modifying Factors: improves with: other medication (Zofran IV and ODT-no relief) Associated Symptoms: reports: diarrhea, fatigue, nausea, vomiting, weakness. denies: fever/chills, genitourinary problems Rectal Bleeding: reports: none Rectal Pain: reports: none Emesis Description: reports: clear Bruising or Bleeding Gums?: No Similar Symptoms Previously?: Yes Recently seen or treated by another doctor?: No Review of Systems - Adult - REVIEW OF SYSTEMS - ADULT Constitutional: reports: fatique. denies: chills, fever Eyes: reports: no symptoms reported Ears, Nose, Mouth & Throat: reports: no symptoms reported Cardiovascular: denies: chest pain, palpitations, syncope Respiratory: denies: cough, shortness of breath Gastrointestinal: reports: abdominal pain, diarrhea, nausea, vomiting Genitourinary: denies: dysuria, discharge, frequency, flank pain Musculoskeletal: denies: muscle aches, muscle weakness Integumentary: reports: no symptoms reported Neurological: denies: dizziness/vertigo, headache/migraines Psychiatric: reports: no symptoms reported Endocrine: reports: no symptoms reported Hematologic/Lymphatic: reports: no symptoms reported Allergic/Immunologic: reports: no symptoms reported All Other Systems: Reviewed and Negative Past History - Adult - PAST MEDICAL HISTORY-ADULT Review of Records: reports: Nursing Assessment Review, Medications Reviewed, Social history reviewed & non-contributory. Major Childhood Illnesses: reports: denies history Cardiovascular: reports: HTN, hyperlipidemia Respiratory: reports: denies history Gastrointestinal: reports: denies history Obstetrical/Gynecological: reports: denies history Genitourinary: reports: denies history Musculoskeletal: reports: chronic pain (chronic arthritis) Neurological: reports: denies history Endocrine/Immune: reports: denies history Other Conditions: reports: denies history - PRIOR SURGERIES/PROCEDURES Surgical/Procedure History: reports: hysterectomy, other (cysts removed from ovaries). denies: recent surgery - IMMUNIZATION STATUS Childhood Immunizations: See Nurse Assessment Flu Vaccine: See Nurse Assessment - FAMILY HISTORY Family History: reviewed, not pertinent - SOCIAL HISTORY Smoking: cigarettes Provider spent 3-5 mins advising pt. on dangers of tobacco.: Discussed manners to quit use, and f/u contacts for add'l counseling. Substance Use: denies Living Situation: family Physical Exam-General - PHYSICAL EXAM-ADULT Initial Vital Signs Reviewed: Yes - CONSTITUTIONAL General Appearance: alert, mild distress, other (fatigued) - EYES Eyes: PERRL/EOMI - HEAD, EARS, NOSE, MOUTH & THROAT HENMT: normocephalic/atraumatic, moist mucous membranes, normal ENT inspection - NECK Neck: non-tender, full range of motion, supple, normal inspection - RESPIRATORY Respiratory: chest non-tender, lungs clear, normal breath sounds - CARDIOVASCULAR Cardiovascular: normal peripheral pulses, regular rate, rhythm, no edema - GASTROINTESTINAL (ABDOMEN) Abdominal Exam: normal bowel sounds, soft, tenderness (general) - LYMPHATIC Lymphatic: no adenopathy - MUSCULOSKELETAL Back Exam: normal inspection Extremity: normal range of motion, non-tender, normal gait, normal inspection - SKIN Integumentary: normal turgor, diaphoresis. negative: normal color (pale) - NEUROLOGIC Neurologic: grossly normal, no motor/sensory deficits - PSYCHIATRIC Psych/Mental Status: normal mood/affect Progress - PLAN OF CARE/RESULTS Progress/Plan/Lab Results: Vital Signs - 8 hr 08/07/19 22:34 Temperature 97.5 F L Pulse Rate 79 Respiratory Rate 20 Blood Pressure 96/70 O2 Sat by Pulse Oximetry 92 L Laboratory Results - last 24 hr 08/07/19 08/07/19 08/07/19 22:55 22:55 22:55 WBC 13.22 H RBC 5.38 Hgb 15.4 Hct 48.3 H MCV 89.8 MCH 28.6 MCHC 31.9 L RDW Std Deviation 13.4 Plt Count 343 MPV 12.2 H Immature Gran % (Auto) 0.2 Neut % (Auto) 85.8 H Lymph % (Auto) 7.4 L Randall % (Auto) 5.4 Eos % (Auto) 1.0 Baso % (Auto) 0.2 Immature Gran # (Auto) 0.03 Neut # (Auto) 11.33 H Lymph # (Auto) 0.98 L Randall # (Auto) 0.72 H Eos # (Auto) 0.13 Baso # (Auto) 0.03 Sodium 138 Potassium 4.4 Chloride 102 Carbon Dioxide 20 L Anion Gap 16 BUN 14 Creatinine 1.1 H Estimated GFR/1.73 m2 49 BUN/Creatinine Ratio 13 Glucose 131 H Calculated Osmolality 278 Calcium 9.1 Total Bilirubin 0.27 AST 21 ALT 9 L Alkaline Phosphatase 78 Total Protein 6.6 Albumin 3.7 Globulin 2.9 Albumin/Globulin Ratio 1.3 Amylase 128 Lipase 96 H Plasma Lactate 2.5 H Orders Category Date Time Status NEWS Score 2-4:Order NEWS Lactate Series NOW Care 08/07/19 22:59 Active Saline Loc DIRECTED Care 08/07/19 23:00 Active NPO Diet 08/07/19 23:[address] ABD/PELVIS W/IV CONT ONLY [CT] Stat Exams 08/07/19 23:42 Ordered AMYLASE [CHEM] Stat Lab 08/07/19 22:55 Completed BLOOD CULTURE [BLDCUL] Stat Lab 08/07/19 23:42 Ordered CBC WITH ELECTRONIC DIFF [HEME] Stat Lab 08/07/19 22:55 Completed COMPREHENSIVE METABOLIC PANEL [CHEM] Stat Lab 08/07/19 22:55 Completed LACTATE, PLASMA [CHEM] Lab 08/08/19 02:00 Uncollected LACTATE, PLASMA [CHEM] Lab 08/08/19 05:00 Uncollected LACTATE, PLASMA [CHEM] Q3H Lab 08/07/19 22:55 Completed LIPASE [CHEM] Stat Lab 08/07/19 22:55 Completed URINALYSIS W/POSS RFLX CULT [URINALYSIS] Stat Lab 08/07/19 23:00 Uncollected 0.9% Sodium Chloride Inj [Ns] 1,000 ml Med 08/07/19 23:40 Active IV 999 mls/hr Dicyclomine [Bentyl] Med 08/07/19 23:40 Discontinued 20 mg IM NOW ONE Morphine Med 08/07/19 23:42 Discontinued 2 mg IV NOW ONE Result Diagrams: 08/07/19 22:55 08/07/19 22:55 - REASSESSMENT Reassessment #1 Time Reassessed: 01:26 Status: unchanged (pt continues to have a terrible time with n/v despite zofran,reglan. does not have a long QT, trial of droperidol 0.625, CT abd yet pending. note elev lactic acid, leukocytosis.) - CONSULTS/PCP/HOSPITALIST Notification #1 *Consult/PCP/Hospitalist*: dr FELDMAN Time Discussed: 04:04 Consult Disposition: Admit Departure - Departure Date of Disposition Decision: 08/08/19 Time of Disposition Decision: 04:05 DIAGNOSIS: Enteritis, Vomiting and diarrhea, Lactic acid acidosis UTI (urinary tract infection) Qualifiers: Urinary tract infection type: acute cystitis Hematuria presence: without hematuria Qualified Code(s): N30.00 - Acute cystitis without hematuria Leukocytosis Qualifiers: Leukocytosis type: unspecified Qualified Code(s): D72.829 - Elevated white blood cell count, unspecified Abdominal pain Qualifiers: Abdominal location: generalized Qualified Code(s): R10.84 - Generalized abdominal pain Disposition: ADMITTED INPATIENT 09 Certified Medical Emergency: Emergent Condition: Fair Referrals and Follow-Ups: None,PCP [Primary Care Provider] - - Critical Care Note This patient required my direct & personal management of CC.: No Attestation - Physician/ BARRETT Attestation The physician spent face to face time with patient:: Yes Advanced Practice Provider documentation review:: Supervising physician onsite and consulted in the evaluation and care of this patient. The physician did have a face to face encounter with the patient. This chart was documented by the indicated scribe, (Humaira Yu Scribe) and accurately reflects the services I performed and decisions made by me, Horacio Berry MD, as attested by the provider's signature.
--- NOTE | 2019-08-08 06:45 | HISTORY AND PHYSICAL ---
CHIEF COMPLAINT: Nausea, vomiting and diarrhea. HISTORY OF PRESENT ILLNESS: 73-year-old female with a history of diverticulosis, I believe diverticulitis, hypertension, hyperlipidemia and chronic pain related to arthritis comes in tonight after having sudden onset abdominal pain with nausea, vomiting and diarrhea. States that it usually comes on suddenly with no warning. She denied any fever or chills. She has had weakness and fatigue. She continued to have vomiting despite receiving Zofran ODT. On arrival to the emergency room, she was hypotensive. She was given a couple of liters of fluids, some Reglan, Bentyl. I believe ultimately they gave her droperidol 0.625 mg. Patient is resting more comfortably. CT report is still pending but the ER provider had noted it appeared to be just viral enteritis. Did not appear to be diverticulitis. We will continue Rocephin as the patient may also have a mild urinary tract infection. Admit her to the medical floor for continued evaluation and treatment. PAST MEDICAL HISTORY: See HPI. PREVIOUS SURGICAL HISTORY: Right hip replacement, hysterectomy, cataract surgery. SOCIAL HISTORY: She is a smoker and has been for many years. No alcohol. No illicit drugs. ALLERGIES: No known drug allergies. FAMILY HISTORY: Her father from Alzheimer's and brother of leukemia. HOME MEDICATIONS: A list of home medications has not been reconciled. An order was placed for nursing to reconcile home medications and place in the computer. These will be started when appropriate. REVIEW OF SYSTEMS: A 14 point review of systems conducted with the patient. Pertinent positives listed above in the HPI. All other systems reviewed and found to be negative. PHYSICAL EXAMINATION: VITAL SIGNS: Temperature 97.5 degrees, pulse 80, respirations 18, blood pressure 131/56, oxygen saturation 95% on room air. GENERAL: 73-year-old female lying in the ER stretcher. She is alert and oriented x3. She is in no acute distress. HEENT: Head is atraumatic, normocephalic. Pupils equal, round and reactive to light. Extraocular eye movements intact. Sclerae anicteric. Conjunctivae pink. Oral mucosa is dry. NECK: Supple. No JVD. Trachea is midline. No cervical lymphadenopathy. CARDIAC: S1, S2 appreciated. No murmurs, gallops, rubs. LUNGS: Clear to auscultation bilaterally. No rhonchi, wheezes, rales. ABDOMEN: Soft, nondistended. Diffusely tender to palpation. Bowel sounds hyperactive all 4 quadrants. No pulsatile mass or organomegaly. EXTREMITIES: No cyanosis, clubbing or edema. 1+ pedal pulses bilaterally. GENITOURINARY: No bladder distention. Patient voids. Otherwise deferred. NEUROLOGICAL: Alert and oriented x3. No focal motor deficits. Otherwise nonfocal examination. DIAGNOSTIC DATA: Report of the CT scan is still pending. LABORATORY DATA: WBC 13.22, hemoglobin 15.4, hematocrit 48.3, platelet count 343,000. Sodium 138, potassium 4.4, chloride 102, carbonate dioxide 20, BUN 14, creatinine 1.1, glucose 131. Urine was nitrate positive with 3+ bacteria. ASSESSMENT AND PLAN: 1. Enteritis. 2. Questionable urinary tract infection. 3. History of hypertension currently hypotensive to normotensive. 4. Hyperlipidemia. 5. Acute kidney injury. PLAN: Admit patient to the medical floor. NPO at this time. We will continue to alternate Phenergan and Zofran. Continue rehydration with normal saline. Recheck laboratory data. We will restart her home medications once available. Further recommendations per patient's clinical course. Dictated by JOHN Mccurdy for Chan Major MD cc: JOHN Mccurdy MD
[2019-08-08] MEDS ORDERED: SODIUM CHLORIDE 0.9% INJ PRN (06:55)
[2019-08-08] MEDS ORDERED: PHENERGAN IV PRN (06:55)
[2019-08-08] MEDS ORDERED: ZOFRAN IV PRN (06:55)
--- NOTE | 2019-08-08 07:45 | Diag Imaging Result Doc PS360 ---
EXAM: CT ABD/PELVIS W/IV CONT ONLY INDICATION: ABD PAIN,VOMIT,DIARRHEA TECHNIQUE: This exam was performed using automated exposure control, adjustment of mA or kV according to patient size, and/or use of iterative reconstruction technique. COMPARISON: 05/17/2019 FINDINGS: There are a couple of tiny hepatic cysts, stable. The gallbladder, spleen, and pancreas are unremarkable. There is stable mild thickening of the left adrenal gland suggesting mild hyperplasia. The right adrenal gland is unremarkable. There are multiple bilateral renal cysts there are a couple of cysts at the inferior aspect of both kidneys that are somewhat complex with internal septations or debris. One cyst at the lower pole of the left kidney measures up to 2.7 cm and has a thickened septation with slight enhancement. There is also a 1.7 cm complex cyst at the lower pole of the right kidney with multiple thin septations superiorly. Continued surveillance of these complex cysts is recommended. The urinary bladder is partially distended and is essentially unremarkable, otherwise. There is evidence of a prior hysterectomy. There is extensive diverticulosis coli that mainly affects the sigmoid colon. There is no evidence of diverticulitis. There is fluid filled small bowel throughout the abdomen with mild distention and there is evidence of small bowel mucosal thickening indicating nonspecific enteritis. There is mild fluid distention of the ascending colon and the hepatic flexure. No pneumatosis is appreciated. There is a very small hiatal hernia. No free abdominal gas or free fluid is appreciated. There is extensive aortoiliac atherosclerotic calcification. There are degenerative changes involving the spine and left hip. There has been a prior right hip arthroplasty. There is no evidence of acute osseous abnormality. IMPRESSION: 1.Fluid-filled loops of small bowel throughout the abdomen with mild distention and mild mucosal thickening suggesting nonspecific enteritis. 2.A mixture of simple and complex cysts associated with both kidneys. Please see above discussion. 3.Other incidental/nonacute findings detailed above. Electronically signed by Greg Munoz 08/08/2019 7:42 AM
[2019-08-08] MEDS: ROCEPHIN 1 GM in NS 50 ML IV SCH (08:58)
[2019-08-08] MEDS: NS 1,000 ML IV SCH ×2 (08:58→21:55)
[2019-08-08 15:29] LABS: INR 1.11; PROTIME 14.5 Seconds (11.0-16.0)
[2019-08-08 15:30] LABS: PTT 35.4 Seconds (22.3-41.8)
--- NOTE | 2019-08-08 18:48 | GASTROENTEROLOGY CONSULTATION ---
DATE: 08/08/2019 REASON FOR CONSULTATION: Nausea, vomiting, diarrhea. HISTORY OF PRESENT ILLNESS: This is a 73-year-old female who follows with Dr. Rose as an outpatient. The patient had recently had an EGD and colonoscopy on 07/19/2019, indications at that time for anemia. The patient brought a colonoscopy report with her from the procedure. No EGD report available. Colonoscopy showed a few diminutive sessile polyps in the rectum. Polyps very small and not removed. Diverticulosis in the sigmoid colon, rectosigmoid colon and distal descending colon. The patient's diverticulosis had worsened with significant narrowing of the colon. At that time she was given Cipro and Flagyl for 14 days. Recommended to have a follow up colonoscopy in 3 years. Per pathology report from the hospital records, EGD had showed gastritis with biopsy showing chronic inactive gastritis, Helicobacter pylori was negative. The patient reports onset of symptoms this time last evening. She states over the last several months since her last hospitalization in May she has been following a strict diet. Last night after symptoms occurred, she had previously eaten moreno beans for supper. Prior to that during the day and the day before she had eaten cottage cheese with peaches, grilled chicken from home with potatoes. Other foods that she has had over the last 3-4 days included eating out at [employer] restaurant where she had some grilled shrimp, potatoes and asparagus. She had reported onset of symptoms last night around 6 p.m. She had several episodes of emesis and then started having diarrhea along with incontinence. She reports having up to 8 to 10 episodes of emesis and diarrhea. When this happens she becomes dehydrated. She has low blood pressure and dizziness. They had to call 911. The patient has had fluid resuscitation. She was also started on antibiotics for possible mild urinary tract infection. She did have mild elevation in her white blood cell count, 13.22. She denies any visible blood in the stool or hematemesis. She has had stool studies ordered but not collected. She states her last bowel movement was around 10 a.m. this morning. She had reported abdominal pain with onset of symptoms last evening. Her abdominal pain has resolved now. PAST MEDICAL HISTORY: Hypertension, hyperlipidemia, renal disease granuloma, arthritis, history of diverticulosis/diverticulitis. The patient has had 2 hospitalizations with the same symptoms in May and this admission. PAST SURGICAL HISTORY: Right hip replacement, hysterectomy, cataract surgery, recent EGD and colonoscopy [address] Rose. ALLERGIES: No known drug allergies. HOME MEDICATIONS: 1. Alprazolam 0.5 mg daily as needed. 2. Amlodipine/benazepril 5/20 mg daily. 3. Probiotic daily. 4. Zocor 40 mg every night. SOCIAL HISTORY: Positive for tobacco use. No reported alcohol or illicit drug use. She is . FAMILY HISTORY: Father from Alzheimer disease. Brother from leukemia. REVIEW OF SYSTEMS: Per history of present illness.Vital Signs: Temperature 98.6 degrees, pulse 73, respirations 20, blood pressure 123/56. General: Patient is awake and alert. No acute distress. At present time she is denying nausea, vomiting, abdominal pain, or diarrhea. HEENT: Normocephalic, atraumatic. Pupils equal, round, reactive to light. Sclerae nonicteric. Cardiovascular: Regular rate and rhythm. Respiratory: Lung sounds essentially clear. Abdomen: Soft, nontender, nondistended. Positive bowel sounds. Extremities: No lower extremity edema noted. Bilateral pedal pulses present. Neurologic: Cranial nerves 2-12 grossly intact. Patient is awake, alert, oriented to person, place, and time. DIAGNOSTIC RESULTS: Laboratory/hematology: WBC 13.22, hemoglobin 15.4, hematocrit 48.3, MCV 89.8, platelet 343,000. Chemistry: Sodium 138, potassium 4.4, chloride 102, CO2 20, BUN 14, creatinine 1.1, glucose 131, calcium 9.1, total bilirubin 0.27, AST 21, ALT 9, alkaline phosphatase 78, amylase 128, lipase 96. Urinalysis positive for urinary tract infection. IMAGING: Abdominal pelvis CT scan findings showed fluid-filled loops of small bowel throughout the abdomen with mild distention and mild mucosal thickening suggesting nonspecific enteritis. A mixture of simple and complex cysts in both kidneys. Very small hiatal hernia. No free abdominal gas or free fluid noted. There was mild fluid distention of the ascending colon and hepatic flexure along with the distended loops in the small intestine. ASSESSMENT: 1. Nausea, vomiting has improved. 2. Diarrhea, improved. 3. Enteritis by CT scan. 4. Recent EGD and colonoscopy showing gastritis along with colon polyps in the rectum and diverticulosis with significant narrowing of the colon. The patient was given antibiotics after the procedure. The procedure done by Dr. Rose on 07/19/2019 as an outpatient. 5. Stool studies have been ordered and awaiting collection. PLAN: 1. Continue symptomatic treatment. 2. Supportive care. 3. Continue p.r.n. medications for nausea, vomiting. 4. Clear liquid diet for now. 5. Continue IV fluids. Further plans will be made according to her report her progress. I have notified Dr. Johnson of consultation. Further plans to be made as needed. Thank you for this consultation. Dictated by JOHN Kovacs for Nelson Johnson MD cc: JOHN Torrez MD [facility]
[2019-08-09] MEDS: ROCEPHIN 1 GM in NS 50 ML IV SCH (08:25)
[2019-08-09] MEDS: NS 1,000 ML IV SCH ×2 (08:26→13:18)
[2019-08-09 08:59] LABS: HEMATOCRIT 40.1 % (37.0-47.0); HEMOGLOBIN 12.6 g/dL (12.0-16.0); IMM GRAN# 0.02 X1000 (0.0-0.04); IMM GRAN% 0.1 % (0.0-0.5); LYMPH# 0.98 X1000 (1.2-3.4); MCH 28.6 PG (27-31); MCHC 31.4 g/dL (33-37); MCV 90.9 FL (81-99); MONO# 0.86 X1000 (0.11-0.59); MONO% 5.3 % (1.7-9.3); MPV 12.3 FL (7.4-10.4); NEUT% 88.6 % (42.2-75.2); PLT 316 X1000 (130-400); RBC 4.41 XMIL (4.2-5.4); WBC 16.26 X1000 (4.8-10.8)
[2019-08-09 09:19] LABS: AGAP 13; BUN 12 mg/dL (8-22); CALCIUM 9.1 mg/dL (8.8-10.2); CHLORIDE 103 mmol/L (98-107); COSMO 278; CREATININE 0.8 mg/dL (0.5-0.9); ESTIMATED GFR > 60; GLUCOSE 111 mg/dL (70-104); POTASSIUM 3.5 mmol/L (3.5-5.1); SODIUM 139 mmol/L (136-145); TCO2 23 mmol/L (25-35)
[2019-08-09 10:54] LABS: LARGE PLATELETS 2+; LYMPHS 12 % (21-51); SEGS 88 % (42-75)
--- NOTE | 2019-08-09 13:51 | PROGRESS NOTE ---
DATE: 08/09/2019 SUBJECTIVE: The patient seems to be feeling better. Her abdominal pain is much better as well. No more nausea or vomiting and she is tolerating p.o. She is still having episodes of watery/loose bowel movements with some mucus and some blood. Laboratory did not show any C. difficile infection. Blood culture is negative and the stool cultures for Giardia and Cryptosporidium are negative. She does have many white blood cell counts in the stool. OBJECTIVE: Vital Signs: Temperature 97.5 degrees, pulse 68, respiratory rate 19, blood pressure 138/71, oxygen saturation 92 on room air. HEENT: Head normocephalic. No trauma. PERRLA. Neck: Supple. No JVD. No masses. Central trachea. Chest: Clear to auscultation. No wheezing. No rales. Abdomen: Soft, nontender, nondistended. No hepatosplenomegaly. Extremities: No edema no clubbing, no cyanosis. Neurological Examination: The patient is awake and alert. She is oriented x3. No focal deficits. Laboratory: WBC 16.2, hemoglobin 12.6, hematocrit 40.1, platelets 316,000. Sodium 139, potassium 3.5, chloride 103, bicarbonate 23, BUN 12, creatinine 0.8, glucose 111, calcium 9.1. ASSESSMENT AND PLAN: 1. Gastroenteritis. This is not the first time that this patient comes with nausea, vomiting, and diarrhea. She has been evaluated by the gastroenterology department and actually she had an endoscopy done last month or so. I will continue with the same management for now. She seems to be feeling better. I will continue with a liquid diet and I will follow the recommendations of the gastroenterology department. 2. Urinary tract infection. She is symptomatic with a positive culture that showed gram-negative rods. I will continue with ceftriaxone. 3. History of hypertension. She came in hypotensive so we will go ahead and hold her blood pressure medication for now. 4. Acute kidney injury, resolved. 5. Hyperlipidemia, stable. Continue with the same management. cc: Roldan Mcmahon MD
[2019-08-10] MEDS: NS 1,000 ML IV SCH ×2 (02:00→12:49)
[2019-08-10 07:55] LABS: AGAP 10; BUN 6 mg/dL (8-22); CHLORIDE 106 mmol/L (98-107); COSMO 280; CREATININE 0.7 mg/dL (0.5-0.9); ESTIMATED GFR > 60; GLUCOSE 87 mg/dL (70-104); POTASSIUM 3.6 mmol/L (3.5-5.1); SODIUM 142 mmol/L (136-145); TCO2 26 mmol/L (25-35)
[2019-08-10 08:27] LABS: BASO# 0.01 X1000 (0.0-0.2); BASO% 0.1 % (0.0-0.8); EOS# 0.07 X1000 (0.0-0.7); EOS% 0.6 % (0.0-10.0); HEMATOCRIT 37.1 % (37.0-47.0); HEMOGLOBIN 11.6 g/dL (12.0-16.0); IMM GRAN# 0.02 X1000 (0.0-0.04); IMM GRAN% 0.2 % (0.0-0.5); LYMPH# 1.75 X1000 (1.2-3.4); LYMPH% 14.9 % (20.5-51.1); MCH 28.5 PG (27-31); MCHC 31.3 g/dL (33-37); MCV 91.2 FL (81-99); MONO# 0.84 X1000 (0.11-0.59); MONO% 7.1 % (1.7-9.3); MPV 12.4 FL (7.4-10.4); NEUT# 9.09 X1000 (1.4-6.5); NEUT% 77.1 % (42.2-75.2); PLT 269 X1000 (130-400); RBC 4.07 XMIL (4.2-5.4); RDW 13.7 % (11.5-14.5); WBC 11.78 X1000 (4.8-10.8)
[2019-08-10] MEDS: ROCEPHIN 1 GM in NS 50 ML IV SCH (09:40)
[2019-08-10 11:30] VITALS: BP 152/73
[2019-08-10] MEDS ORDERED: LOTREL 5/20 MG PO SCH (11:30)
--- NOTE | 2019-08-10 17:46 | GASTROENTEROLOGY PROGRESS NOTE ---
DATE: 08/10/2019 SUBJECTIVE: Patient was awake and alert. Her was at the bedside. She currently denies complaints today. She has tolerated a liquid diet. Stool studies reviewed were all negative. No evidence of Clostridium difficile. The patient had recently had a colonoscopy by Dr. Rose on 07/19/2019 with findings of a few polyps in the rectum, diverticulosis with significant narrowing of the colon. She was given antibiotics after the procedure. OBJECTIVE: Vital Signs: Temperature 97.8 degrees, pulse 60, respirations 18, blood pressure 152/73. General: Patient is awake and alert, in no acute distress. LABORATORY: Hematology, WBC 11.78, hemoglobin 11.6, hematocrit 37.1, MCV 91.2. Chemistry: Sodium 142, potassium 3.6, chloride 106, CO2 26, BUN 6, creatinine 0.7, glucose 87, calcium 9.0. ASSESSMENT AND PLAN: 1. Nausea, vomiting, diarrhea has resolved. 2. Enteritis by CT scan. Patient has received antibiotics. 3. Urinary tract infection. Continue antibiotics. 4. History of colon polyps, diverticulosis and narrowing of the colon. I recommend she take laxatives at home on a daily basis to keep her bowels moving. 5. Recommend she follow up with Dr. Rose as an outpatient for further recommendations. Further plans to be made as need. I have discussed this case with Dr. Johnson. Dictated by JOHN Kovacs for Nelson Johnson MD cc: JOHN Torrez MD
[2019-08-10] MEDS ORDERED: ZOCOR PO SCH (21:00)
--- NOTE | 2019-08-10 22:57 | DISCHARGE SUMMARY ---
ADMISSION DATE: 08/08/2019 DISCHARGE DATE: 08/10/2019 DISCHARGE DIAGNOSES: 1. Gastroenteritis. 2. Urinary tract infection. 3. History of hypertension. 4. Acute kidney injury, resolved. 5. Hyperlipidemia. PROCEDURES PERFORMED: Abdomen and pelvis CT scan dated 08/08/2019. Impression: Fluid-field loops of small bowel throughout the abdomen with mild distention and mild mucosal thickening, suggesting nonspecific enteritis, a mixture of simple and complex cyst associated with both kidneys. HOSPITAL COURSE: A 73-year-old female with a past medical history of diverticulosis, hypertension, hyperlipidemia, and chronic pain related to arthritis, presented to the emergency department and was admitted on 08/08/2019 due to abdominal pain, nausea, vomiting, and diarrhea that started suddenly with no warning. She denied any fever or chills. She had weakness and fatigue. Upon arrival to the emergency department, she was hypotensive. She was given some IV fluids and Reglan and Bentyl. CT scan showed enteritis, but this is not the first time that this patient has been hospitalized for this problem and actually she was evaluated by the Gastroenterology Department before. Recently, she had a colonoscopy done by Dr. Rose and she received some antibiotics as well. We did C difficile toxin and antigen, and both were negative. She also has some burning sensation to void and she has a positive culture that showed Escherichia coli. She was treated basically symptomatically and also she received ceftriaxone during this hospitalization. She will be discharged with a cephalosporin to complete treatment of her UTI. Also we have recommended to follow up with Dr. Rose as an outpatient in 1 week to see if he can re-evaluate this patient. She was evaluated by the Gastroenterology Department during this hospitalization. She feels much better today. Vital signs are stable and actually she has been a bit hypertensive. I will restart her home medications completely and she will be discharged home today. DISCHARGE PHYSICAL EXAMINATION: Vital Signs: Temperature 97.8 degrees, pulse 60, respiratory rate 18, blood pressure 152/73, oxygen saturation 95% on room air. HEENT: Head normocephalic, no trauma, PERRLA. Neck supple. No JVD. No masses. Central trachea. Chest: Clear to auscultation. No wheezing. No rales. Abdomen: Soft, nontender, nondistended. No hepatosplenomegaly. Extremities: No edema, no clubbing, no cyanosis. Neurological: The patient is awake, alert. She is oriented x3. No focal deficits. LABORATORY: WBC 11.7, hemoglobin 11.6, hematocrit 37.1, platelets 269,000. Sodium 142, potassium 3.6, chloride 106, bicarbonate 26, BUN 6, creatinine 0.7, glucose 87, calcium 9. DISCHARGE MEDICATIONS: Alprazolam 0.5 mg p.o. daily as needed, amlodipine/benazepril 5/20 mg p.o. daily, Keflex 500 mg p.o. q.12 hours to complete 7 days. Probiotic with lactobacillus rhamnosus 1 tablet p.o. daily and Symbicort 40 mg p.o. at bedtime. TIME SPENT AT DISCHARGE: 20 minutes. cc: Roldan Mcmahon MD
[2019-08-11] MEDS ORDERED: CULTURELLE PO SCH (09:00)
== END 2019-08-10 14:23 | disposition home or self-care (01) | DRG 690 ==
LOC: ED 22:43 → EDIPHOLD 08-08 05:02 → SUATTDRO 08-08 05:02 → 3N 08-08 13:45
PROVIDERS: ATTEND Internal Medicine